=== PATIENT | female | born 1995 | race Two or more races ===

== ENCOUNTER 2023-12-17 19:01 | Emergency (ER) | payer BC, OTHER ==
[~2023-12-17] VITALS: Ht 175.3 cm; Wt 94.8 kg
[2023-12-17] MEDS ORDERED: LEXAPRO5 MG PO (19:17)
== END 2023-12-17 22:52 | disposition home or self-care (01) ==
LOC: ER 19:02
DX: S91.351A Open bite, right foot, initial encounter (principal); W54.0XXA Bitten by dog, initial encounter; X58.XXXA Exposure to other specified factors, initial encounter; Y93.89 Activity, other specified; Y92.832 Beach as the place of occurrence of the external cause; Y99.8 Other external cause status; Z88.0 Allergy status to penicillin